=== PATIENT | male | born 1965 | race Caucasian/White ===

== ENCOUNTER 2016-05-16 13:38 | Outpatient (CLI) | payer MEDICARE ==
[2014-07-13 05:30] VITALS: BP 171/93
[2016-05-16 13:54] LABS: BASOPHILS % 0.4 (0.0-1.5); MEAN CORPUSCULAR HEMOGLOBIN 32.1 pg (28.0-34.0); MONOCYTES # 0.4 # k/uL (0.0-0.9); MONOCYTES % 6.2 % (0.0-11.0); NEUTROPHILS # 5.5 # k/uL (1.4-7.7)
[2016-05-16 14:19] LABS: eGFR (African) > 60; eGFR (Non-African) > 60
== END 2016-05-16 13:40 ==
LOC: LAB 13:38
PROVIDERS: ATTEND Internal Medicine Nephrology
DX: Z51.81 Encounter for therapeutic drug level monitoring (principal); Z79.899 Other long term (current) drug therapy
CPT/HCPCS: 36415; 80053; 85025

== ENCOUNTER 2016-09-15 11:03 | Outpatient (CLI) | payer MEDICARE ==
[2014-07-13 05:30] VITALS: BP 171/93
[2016-09-15 11:18] LABS: APPEARANCE,URINE Clear (CLEAR); COLOR,URINE Amber (YELLOW); OCCULT BLOOD,URINE 2+ (NEGATIVE); PH URINE 5.5 (5.0 - 8.0)
[2016-09-15 11:21] LABS: MEAN CORPUSCULAR HEMOGLOBIN 31.8 pg (28.0-34.0); MEAN CORPUSCULAR VOLUME 93.9 fl (80.0-100.0)
[2016-09-15 11:30] LABS: AMORPHOUS SEDIMENT,UR MODERATE (NEGATIVE)
[2016-09-15 11:44] LABS: eGFR (African) > 60; eGFR (Non-African) > 60
[2016-09-15 11:55] LABS: SEGMENTED NEUTROPHILS % 80 % (39-79)
[2016-09-15 11:56] LABS: EOSINOPHILS % 1 % (0-7); MONOCYTES % 8 % (0-11)
[2016-09-15 18:02] LABS: MAGNESIUM 1.6 mg/dL (1.6-2.6)
== END 2016-09-15 11:04 ==
LOC: LAB 11:03
PROVIDERS: ATTEND Internal Medicine Nephrology
DX: Z94.0 Kidney transplant status (principal)
CPT/HCPCS: 36415; 80053; 80197; 81002; 83735; 84100; 85025

== ENCOUNTER 2017-03-03 08:38 | Outpatient (CLI) | payer MEDICARE ==
[2014-07-13 05:30] VITALS: BP 171/93
[2017-03-03 09:09] LABS: APPEARANCE,URINE Clear (CLEAR); COLOR,URINE Yellow (YELLOW); OCCULT BLOOD,URINE Trace-intact (NEGATIVE); PH URINE 6.5 (5.0 - 8.0); UROBILINOGEN URINE 0.2 Eu (0.2-1.0)
[2017-03-03 09:13] LABS: BASOPHILS % 1.2 (0.0-1.5); EOSINOPHILS % 4.7 % (0.0-6.8); MEAN CORPUSCULAR VOLUME 94.5 fl (80.0-100.0); MONOCYTES % 5.1 % (0.0-11.0); NEUTROPHILS # 6.3 # k/uL (1.4-7.7)
[2017-03-03 10:23] LABS: eGFR (African) > 60; eGFR (Non-African) > 60
[2017-03-03 17:21] LABS: MAGNESIUM 1.8 mg/dL (1.6-2.6)
[2017-03-03 19:02] LABS: PROTEIN mg/dL 12 mg/dL
== END 2017-03-03 08:40 ==
LOC: LAB 08:38
PROVIDERS: ATTEND Internal Medicine Nephrology
DX: Z94.0 Kidney transplant status (principal)
CPT/HCPCS: 36415; 80053; 80197; 81002; 82570; 83735; 83970; 84100; 84156; 85025

== ENCOUNTER 2017-03-24 09:02 | Outpatient (CLI) | payer MEDICARE ==
[2014-07-13 05:30] VITALS: BP 171/93
[2017-03-24 09:29] LABS: BASOPHILS % 0.8 (0.0-1.5); EOSINOPHILS % 4.3 % (0.0-6.8); MEAN CORPUSCULAR HEMOGLOBIN 32.1 pg (28.0-34.0); MEAN CORPUSCULAR VOLUME 97.9 fl (80.0-100.0); MONOCYTES % 4.1 % (0.0-11.0); NEUTROPHILS # 5.1 # k/uL (1.4-7.7)
[2017-03-24 09:30] LABS: APPEARANCE,URINE Clear (CLEAR); COLOR,URINE Yellow (YELLOW); OCCULT BLOOD,URINE Trace-lysed (NEGATIVE); UROBILINOGEN URINE 0.2 Eu (0.2-1.0)
[2017-03-24 09:59] LABS: eGFR (African) > 60; eGFR (Non-African) > 60
[2017-03-24 17:01] LABS: PROTEIN mg/dL 13 mg/dL
== END 2017-03-24 09:04 ==
LOC: LAB 09:02
PROVIDERS: ATTEND Internal Medicine Nephrology
DX: Z94.0 Kidney transplant status (principal)
CPT/HCPCS: 36415; 80053; 80197; 81002; 82570; 83970; 84100; 84156; 85025

== ENCOUNTER 2018-05-09 12:15 | Emergency (ER) | payer MEDICARE ==
[2018-05-09] MEDS ORDERED: SILVER SULFADIAZINE 1% TP ONE (12:34)
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
[2018-05-09] MEDS ORDERED: DIPH,PERTUSS(ACELL),TET VAC/PF 0.5 ML DISP.SYRIN IM ONE ×2 (12:50)
[2018-05-09 13:16] VITALS: BP 142/78
== END 2018-05-09 13:06 | disposition home or self-care (01) ==
LOC: ED 12:15
DX: T23.002A Burn of unspecified degree of left hand, unspecified site, initial encounter (principal); X19.XXXA Contact with other heat and hot substances, initial encounter; Y93.89 Activity, other specified; Y92.9 Unspecified place or not applicable
CPT/HCPCS: 90471; 90715; 99283

== ENCOUNTER 2018-08-10 12:54 | Outpatient (CLI) | payer MEDICARE | END 2018-08-10 13:30 | LOC: NEPHRO 12:54 | PROVIDERS: ATTEND Internal Medicine Nephrology | DX: Z94.0 Kidney transplant status (principal); G89.29 Other chronic pain; D75.1 Secondary polycythemia; E21.1 Secondary hyperparathyroidism, not elsewhere classified | CPT/HCPCS: 99214 ==